=== PATIENT | male | born 1955 | race Two or more races ===

== ENCOUNTER 2018-09-08 17:02 | Inpatient (IN) | payer BC, OTHER ==
[~2018-09-08] VITALS: Ht 165.1 cm; Wt 76.2 kg
[2018-09-08 17:58] LABS: Basophils # (auto) 0.1 uL; Basophils % (auto) 0.5 % (0.0-2.0); Eosinophils # (auto) 0 uL; Hematocrit 48.9 % (41.0-53.0); Hemoglobin 16.2 g/dL (13.5-17.5); Lymphocytes # (auto) 0.8 uL; Lymphocytes % (auto) 5.8 % (10.0-50.0); Mean Corpuscular Hemoglobin 28.5 pg (28.0-32.0); Mean Corpuscular Hgb Conc. 33.2 g/dL (32.0-36.0); Mean Corpuscular Volume 85.9 fL (80.0-100.0); Monocytes # (auto) 0.4 uL; Monocytes % (auto) 2.9 % (0.0-12.0); Neutrophils # (auto) 13.1 uL; Neutrophils % (auto) 90.8 % (37.0-80.0); Platelet Count (auto) 293 10^3/uL (140-450); Red Blood Cells 5.69 10^6/uL (4.5-5.90); Red Cell Distribution Width 14.3 % (11.8-14.3); White Blood Cell 14.5 10^3/uL (4.4-10.8)
[2018-09-08 18:09] LABS: Albumin 4.1 g/dL (3.4-5.0); BUN/Creatinine Ratio 13.8; Calcium 9.1 mg/dL (8.5-10.1); Potassium 4.3 mmol/L (3.5-5.1)
[2018-09-08 18:22] LABS: Bilirubin, Total 0.4 mg/dL (0.2-1.0); Total Protein 8.2 g/dL (6.4-8.2)
[2018-09-08 18:28] LABS: Urine Bacteria NONE SEEN /hpf (None Seen); Urine Blood Negative /uL (Negative); Urine Mucus FEW (None Seen); Urine Specific Gravity 1.027 (1.001-1.035); Urine WBC 5 /hpf (0 - 3)
[2018-09-08] MEDS ORDERED: PANTOPRAZOLE 40 MG/10 ML VIAL IV STA (21:13)
[2018-09-08] MEDS ORDERED: metroNIDAZOLE 500MG/100ML 100 ML IV ONE (21:15)
[2018-09-08] MEDS ORDERED: ONDANSETRON HCL 4 MG/2 ML VIAL IV ONE (21:15)
[2018-09-08] MEDS ORDERED: MORPHINE SULFATE 4 MG/ML SYR/VIAL IV ONE (21:15)
[2018-09-09] MEDS ORDERED: PANTOPRAZOLE 40 MG/10 ML VIAL IV ONE (00:30)
[2018-09-09] MEDS: SODIUM CHLORIDE 0.9% 1,000 ML IV SCH ×2 (00:30→13:50)
[2018-09-09] MEDS ORDERED: ACETAMINOPHEN 500 MG TAB PO PRN (00:30)
[2018-09-09] MEDS ORDERED: MORPHINE SULFATE 4 MG/ML SYR/VIAL IV PRN (00:30)
[2018-09-09] MEDS ORDERED: ONDANSETRON HCL 4 MG/2 ML VIAL IV PRN (00:30)
--- NOTE | 2018-09-09 02:30 | NUR ---
MS admit from ER BRIANA WALKER admitted to tele/MS after SBAR received. Patient oriented to Gini Willis RN primary RN, unit, room, bed, and unit policies regarding patient care and visiting hours. Patient weighed by bedscale and encouraged to call if they need something. All questions and concerns addressed, patient verbalized understanding, will continue to monitor Note:
[2018-09-09 02:42] VITALS: BP 132/82
[2018-09-09] MEDS ORDERED: OMEP20TA PO (03:12)
[2018-09-09 03:27] VITALS: BP 132/82
--- NOTE | 2018-09-09 05:15 | NUR ---
Paged hospitalist for Diet Order. Per Hospitalist Mikel, patient NPO at this time, will endorse to kassi BAIG
[2018-09-09] MEDS: metroNIDAZOLE 500MG/100ML 100 ML IV SCH ×2 (05:52→14:30)
[2018-09-09 06:00] VITALS: BP 120/78
[2018-09-09] MEDS ORDERED: PANTOPRAZOLE 40 MG TAB PO SCH (06:00)
--- NOTE | 2018-09-09 07:15 | NUR ---
OPENING NOTES RECEIVED REPORT,PATIENT CHECKED, AWAKE ,ALERT,ORIENTED, NO DISTRESS, NO DISCOMFORT.PATIENT REMINDED INSTRUCTED PLAN OF CARE AND NURSING ROUTINES.TO CALL FOR ASSISTANCE IF NEEDING HELP,CALL LIGHT WITHIN REACH PATIENT VERBALIZED UNDERSTANDING.WILL CONTINUE TO MONITOR Q 1 HR AND NEEDED.
[2018-09-09 09:00] VITALS: BP 130/72
[2018-09-09] MEDS ORDERED: cefTRIAXone 1GM/50ML D5W 50 ML IV SCH (09:00)
--- NOTE | 2018-09-09 10:00 | NUR ---
NO C/O NAUSEA NO VOMITING
[2018-09-09 10:58] LABS: Basophils # (auto) 0.1 uL; Basophils % (auto) 0.9 % (0.0-2.0); Eosinophils # (auto) 0.2 uL; Eosinophils % (auto) 1.6 % (0.0-7.0); Hematocrit 42.1 % (41.0-53.0); Hemoglobin 14.1 g/dL (13.5-17.5); Lymphocytes # (auto) 2.4 uL; Lymphocytes % (auto) 23.2 % (10.0-50.0); Mean Corpuscular Hemoglobin 28.8 pg (28.0-32.0); Mean Corpuscular Hgb Conc. 33.5 g/dL (32.0-36.0); Mean Corpuscular Volume 85.9 fL (80.0-100.0); Monocytes # (auto) 0.8 uL; Monocytes % (auto) 8.2 % (0.0-12.0); Neutrophils # (auto) 6.7 uL; Neutrophils % (auto) 66.1 % (37.0-80.0); Nucleated Red Blood Cells % 0.1 %; Platelet Count (auto) 226 10^3/uL (140-450); Red Blood Cells 4.91 10^6/uL (4.5-5.90); Red Cell Distribution Width 14.7 % (11.8-14.3); White Blood Cell 10.2 10^3/uL (4.4-10.8)
[2018-09-09 13:00] VITALS: BP 137/78
--- NOTE | 2018-09-09 13:00 | NUR ---
MD VISIT DR. Timoteo VILLA HERETO SE EXAMINED PATIENT RECEIVED ORDER FOR DISCHARGE AFTER AFTERNOON DOSE OF FLAGYL
[2018-09-09 16:10] VITALS: BP 137/78
--- NOTE | 2018-09-09 16:55 | NUR ---
Discharge instructions given as ordered. Encourage to follow up with PMD as instructed. All questions and concerns addressed. Patient verbalized understanding. Medication reconciliation form completed and copy given to patient. IV removed with catheter intact, pressure dressing applied,Patient DISCHARGE WITH with all personal belongings,INSTRUCTED TO DRAWING BOX TENDER PRESCRIBED MEDICATION AT [facility]. accompanied by family member,PREFERS TO WALK. No distress noted at time of departure.
== END 2018-09-09 16:55 | disposition home or self-care (01) | DRG 690 ==
LOC: ER 17:08 → OVERFLOW 09-09 00:29 → CENTRAL 09-09 02:25
PROVIDERS: ADMIT Nurse Practitioner Family; ATTEND Family Medicine
CPT/HCPCS: 36415; 74176; 80053; 81001; 82150; 83690; 84484; 85025; 94761; 96365; 96375; C9113; G0378; J0696; J2405; J3490